=== PATIENT | female | born 1955 | race Caucasian/White ===

== ENCOUNTER → 2016-11-13 | Outpatient (CLI) | payer OTHER ==
[2016-11-13 16:26] LABS: RHEUMATOID FACTOR TRIGGER LESS THAN 10.0 IU/ML (0.0-14.9)
[2016-11-13 16:27] LABS: URIC ACID 3.4 MG/DL (2.6-6.0)
[2016-11-13 16:29] LABS: CREATINE KINASE 102 U/L (26-192)
[2016-11-16 15:19] LABS: ANA SCREEN NEG (NEG)
[2016-11-16 15:30] LABS: HEPATITIS B SURFACE ANTIBODY 0 mIU/mL
[2016-11-18 13:52] LABS: MYELOPEROXIDASE LESS THAN 1.0 AI (<1.0); PROTEINASE-3 LESS THAN 1.0 AI (<1.0)
== END ==
LOC: PLAB 11:51
PROVIDERS: ATTEND Allergy & Immunology
DX: M25.50 Pain in unspecified joint (principal)
CPT/HCPCS: 36415; 82550; 82652; 84550; 85652; 86021; 86038; 86140; 86147; 86200; 86256; 86317; 86430; 86803; 86812

== ENCOUNTER → 2016-12-29 | Outpatient (CLI) | payer OTHER ==
[2016-12-29 13:12] LABS: AUTOMATED NEUTROPHIL # 2.9 TH/MM3 (1.8-7.7); BASOPHIL % 0.5 % (0.0-2.0); EOSINOPHIL # 0.2 TH/MM3 (0-0.4); EOSINOPHIL % 3.7 % (0.0-4.0); HEMATOCRIT 36.2 % (35.0-46.0); HEMO FLAGS DIFF FINAL; LYMPH % 26.6 % (9.0-44.0); LYMPHOCYTE # 1.3 TH/MM3 (1.0-4.8); MEAN CELL VOLUME 88.8 FL (80.0-100.0); MEAN CORPUSCULAR HEMOGLOBIN 30.2 PG (27.0-34.0); MONO % 7.8 % (0.0-8.0); NEUT % 61.4 % (16.0-70.0); PLATELET COUNT 210 TH/MM3 (150-450); RED BLOOD COUNT 4.08 MIL/MM3 (4.00-5.30); RED CELL DISTRIBUTION WIDTH 13.5 % (11.6-17.2); WHITE BLOOD COUNT 4.8 TH/MM3 (4.0-11.0)
[2016-12-29 13:22] LABS: ALT (GPT) 31 U/L (10-53); ANION GAP 7 MEQ/L (5-15); AST (GOT) 20 U/L (15-37); BICARBONATE 27.8 MEQ/L (21.0-32.0); BLOOD UREA NITROGEN 18 MG/DL (7-18); CHLORIDE 105 MEQ/L (98-107); GLOMERULAR FILTRATION RATE 79 ML/MIN (>89); GLUCOSE,FASTING 88 MG/DL (74-99); SODIUM (NA) 140 MEQ/L (136-145)
[2016-12-29 13:31] LABS: ALKALINE PHOSPHATASE 48 U/L (45-117); LDL CHOLESTEROL 115 MG/DL (0-99); TOTAL BILIRUBIN ADULT 0.3 MG/DL (0.2-1.0)
[2016-12-29 13:34] LABS: WESTERGREN SEDIMENTATION RATE 6 mm/hr (0-30)
== END ==
LOC: PLAB 09:42
PROVIDERS: ATTEND Family Medicine
DX: I10 Essential (primary) hypertension (principal); M19.90 Unspecified osteoarthritis, unspecified site; M25.50 Pain in unspecified joint; M79.2 Neuralgia and neuritis, unspecified
CPT/HCPCS: 36415; 80053; 80061; 84443; 85025; 85652; 86140

== ENCOUNTER → 2017-07-12 | Outpatient (CLI) | payer OTHER ==
[2017-07-12 13:33] LABS: HEMATOCRIT 39.8 % (35.0-46.0); MEAN CORPUSCULAR HEMOGLOBIN 29.5 PG (27.0-34.0); MEAN CORPUSCULAR HGB CONC 33.2 % (32.0-36.0); PLATELET COUNT 220 TH/MM3 (150-450); RED BLOOD COUNT 4.47 MIL/MM3 (4.00-5.30); RED CELL DISTRIBUTION WIDTH 12.9 % (11.6-17.2); REVIEW FLAG FINAL; WHITE BLOOD COUNT 4.4 TH/MM3 (4.0-11.0)
[2017-07-12 14:03] LABS: ALT (GPT) 125 U/L (10-53); ANION GAP 5 MEQ/L (5-15); AST (GOT) 77 U/L (15-37); BICARBONATE 27.8 MEQ/L (21.0-32.0); BLOOD UREA NITROGEN 19 MG/DL (7-18); CHLORIDE 106 MEQ/L (98-107); GLOMERULAR FILTRATION RATE 85 ML/MIN (>89); GLUCOSE,FASTING 78 MG/DL (74-99); POTASSIUM 4.3 MEQ/L (3.5-5.1); SODIUM (NA) 139 MEQ/L (136-145)
[2017-07-12 14:13] LABS: ALKALINE PHOSPHATASE 71 U/L (45-117); HDL CHOLESTEROL 67.5 MG/DL (40.0-60.0); LDL CHOLESTEROL 103 MG/DL (0-99); TOTAL BILIRUBIN ADULT 0.5 MG/DL (0.2-1.0)
== END ==
LOC: PLAB 09:29
PROVIDERS: ATTEND Family Medicine
DX: I10 Essential (primary) hypertension (principal); N95.1 Menopausal and female climacteric states; M19.90 Unspecified osteoarthritis, unspecified site; M25.50 Pain in unspecified joint
CPT/HCPCS: 80053; 80061; 84443; 85027

== ENCOUNTER → 2017-07-23 | Outpatient (CLI) | payer OTHER ==
[2017-07-23 14:09] LABS: INDIRECT BILIRUBIN 0.2 MG/DL (0.0-0.8); TOTAL BILIRUBIN ADULT 0.3 MG/DL (0.2-1.0)
== END ==
LOC: PLAB 09:25
PROVIDERS: ATTEND Family Medicine
DX: R79.89 Other specified abnormal findings of blood chemistry (principal)
CPT/HCPCS: 80074; 80076

== ENCOUNTER → 2017-11-10 | Outpatient (CLI) | payer OTHER ==
[2017-11-10 13:39] LABS: ALBUMIN 3.8 GM/DL (3.4-5.0); AST (GOT) 26 U/L (15-37); BICARBONATE 27.5 MEQ/L (21.0-32.0); BLOOD UREA NITROGEN 26 MG/DL (7-18); CALCIUM 9.4 MG/DL (8.5-10.1); CHLORIDE 104 MEQ/L (98-107); CREATININE 0.67 MG/DL (0.50-1.00); DIRECT BILIRUBIN ADULT 0.1 MG/DL (0.0-0.2); GLOMERULAR FILTRATION RATE 89 ML/MIN (>89); GLUCOSE,RANDOM 91 MG/DL (74-106); SODIUM (NA) 137 MEQ/L (136-145)
[2017-11-10 13:41] LABS: ALT (GPT) 40 U/L (10-53)
[2017-11-10 13:42] LABS: ALKALINE PHOSPHATASE 56 U/L (45-117); TOTAL BILIRUBIN ADULT 0.3 MG/DL (0.2-1.0); TOTAL PROTEIN 7.4 GM/DL (6.4-8.2)
== END ==
LOC: PLAB 09:11
PROVIDERS: ATTEND Family Medicine
DX: R74.8 Abnormal levels of other serum enzymes (principal)
CPT/HCPCS: 36415; 80053; 82248

== ENCOUNTER 2017-12-22 11:30 | Inpatient (IN) | payer OTHER ==
[~2017-12-22] VITALS: Ht 167.6 cm; Wt 67.3 kg
[2018-01-21] MEDS ORDERED: FLUO1TAB3 PO (09:29)
[2018-01-21] MEDS ORDERED: MAGN500T5 PO (09:29)
[2018-01-21] MEDS ORDERED: GABA300C5 PO (09:29)
[2018-01-21] MEDS ORDERED: CALC1TAB16 PO (09:29)
[2018-01-21] MEDS ORDERED: VOLT1GEL16 TOPICAL (09:29)
[2018-01-21] MEDS ORDERED: ALIG4CAP PO (09:29)
[2018-01-21] MEDS ORDERED: DICL75TA PO (09:29)
[2018-01-21] MEDS ORDERED: CYAN1TAB24 SL (09:29)
[2018-01-21] MEDS ORDERED: BIOTCAP PO (09:29)
[2018-01-21] MEDS ORDERED: ESTR1TAB PO (09:29)
[2018-02-09] MEDS ORDERED: CHLORHEXIDINE GLUCONATE 4% SOLN 120 ML BTL TOPICAL SCH (06:00)
[2018-02-09] MEDS ORDERED: DEXAMETHASONE SOD PHOS 20 MG/5 ML VIAL IV PUSH ONE (06:00)
[2018-02-09] MEDS ORDERED: ceFAZolin 2 GM PREMIX 50 ML IV SCH (06:00)
[2018-02-09] MEDS ORDERED: POVIDONE IODINE 7.5% SCRUB 118 ML BOTTLE TOPICAL SCH (06:00)
[2018-02-09] MEDS ORDERED: SODIUM CHLOR 0.9% 250 ML INJ 250 ML ONE (06:09)
[2018-02-09] MEDS ORDERED: VANCOMYCIN HCL 1000 MG VIAL ONE (06:10)
[2018-02-09] MEDS ORDERED: FAT EMULSION 20% INJ 0 ML ONE (06:10)
[2018-02-09] MEDS ORDERED: VANCOMYCIN 1 GM/200 ML PREMIX ON-CALL IV SCH (06:15)
[2018-02-09] MEDS ORDERED: METOPROLOL TARTRATE 25 MG TAB PO PRN (06:15)
[2018-02-09] MEDS ORDERED: SODIUM CHLORID 0.9% 500 ML IV PRN (06:15)
[2018-02-09] MEDS ORDERED: LACTATED RINGER'S 1000 ML IV PRN (06:15)
[2018-02-09] MEDS ORDERED: POVIDONE IODINE 5% (ANTISEPSIS KIT) 4 APPLICATIONS EACH NARE PRN (06:15)
[2018-02-09] MEDS ORDERED: CHLORHEXIDINE GLUCONATE 2 % 1 PACK (2 CLOTHS) TOPICAL PRN (06:15)
[2018-02-09] MEDS ORDERED: HYDR-3516 PO (06:26)
[2018-02-09] MEDS ORDERED: GENTAMICIN SULFATE 80 MG/2 ML VIAL ONE (07:03)
[2018-02-09] MEDS ORDERED: BUPIVACAINE HCL PF 0.5% 30 ML VIAL ONE (07:03)
[2018-02-09] MEDS ORDERED: LIDOCAINE HCL 1% PF 5 ML AMPULE ONE ×2 (07:03→07:10)
[2018-02-09] MEDS ORDERED: SODIUM CHLORIDE 0.9% 20 ML VIAL ONE (07:04)
[2018-02-09] MEDS ORDERED: BUPIVACAINE PF 0.75% DEX-WATER INJ 2 ML AMP ONE (07:05)
[2018-02-09] MEDS ORDERED: BUPIVACAINE LIPOSOME PF 1.3% 20 ML VIAL ONE (07:06)
--- NOTE | 2018-02-09 07:08 | HHI.DCPOC ---
Discharge Care Plan Diagnosis: (1) Primary localized osteoarthrosis, lower leg (2) Status post total knee replacement, left Your Health Problems Are: Difficulty with ADL Goals to Promote Your Health * To prevent worsening of your condition and complications * To maintain your health at the optimal level Directions to Meet Your Goals Take your medications as prescribed Follow your dietary instruction Follow activity as directed Keep your appointments as scheduled Take your immunizations and boosters as scheduled If your symptoms worsen call your PCP, if no PCP go to Urgent Care Center or Emergency Room Smoking is Dangerous to Your Health. Avoid second hand smoke Call the 24-hour hour crisis hotline for domestic abuse at Lei Singh February 09, 2018 07:08
--- NOTE | 2018-02-09 07:09 | HHI.FF ---
Face to Face Verification Diagnosis: (1) Primary localized osteoarthrosis, lower leg (2) Status post total knee replacement, left Physical Therapy Gait training, Transfer training, bed to chair Knee: Total knee Left LE Weight Bearing: WB as tolerated Left LE Range of Motion: Active ROM Nursing Nursing: Arielle teaching Dressing Changes: Do not change dressing Additional Instructions First dressing change in the office I have seen patient Priya Segovia on 02/09/18. My clinical findings support the need for the requested home health care services because: Limited ability to care for self High risk of falls I certify that my clinical findings support that this patient is homebound because: Post-op weakness Unsteady gait/balance Lei Singh February 09, 2018 07:09
[2018-02-09] MEDS ORDERED: CPMMACHINE (07:10)
[2018-02-09] MEDS ORDERED: COMMODE 3-IN-11 MIS (07:10)
[2018-02-09] MEDS ORDERED: WALKER WHEELS/F1 MIS (07:10)
[2018-02-09] MEDS ORDERED: TETRACAINE PF 1% INJ 2 ML AMP ONE (07:17)
[2018-02-09] MEDS ORDERED: MIDAZOLAM HCL 5 MG/5 ML VIAL ONE (07:38)
[2018-02-09] MEDS ORDERED: ROPIVACAINE PERI-ARTICULAR INJECTION. P-ARTICULR SCH ×5 (08:30)
[2018-02-09] MEDS ORDERED: SODIUM CHLORIDE 0.9% IV SCH ×2 (08:30→10:00)
[2018-02-09] MEDS ORDERED: TRANEXAMIC ACID IV SCH ×2 (08:30→10:00)
[2018-02-09] MEDS ORDERED: PROPOFOL 500 MG/50 ML INJ 100 ML ONE (09:02)
--- NOTE | 2018-02-09 09:54 | PD.OP ---
cc: Vinh Garber MD Operative Report Date of Surgery: February 09, 2018 Preoperative Diagnosis: Left knee severe ostial arthritis Postoperative Diagnosis: Same Procedure: Left total knee arthroplasty Anesthesia: spinal Surgeon: Vinh Garber Impact Hammer Operator(s): ANDREW Goodson The surgical procedure was assisted by my Advanced Registered Nurse Practitioner. My SLIDER ASSEMBLER presence was necessary throughout this case for the manipulation and positioning of the surgical extremity. My SLIDER ASSEMBLER was assisting me throughout the duration of this procedure. The skill set of an Advance Registered Nurse Practitioner was medically necessary to complete this procedure. During the surgical case, the surgical coordinator was working at the back table and the Advance Registered Nurse Practitioner was directly assisting me. Resident Surgeon: IMPLANTS: DePuy Attune: Patella: size 32. Femur, posterior stabilized size 5 narrow. Tibia, rotating platform size 4. Tibial insert, rotating platform, posterior stabilized size 5 mm thickness. ESTIMATED BLOOD LOSS: 75 cc TOURNIQUET TIME: 33 minutes at 250 mmHg pressure. JUSTIFICATION FOR PROCEDURE: The patient has end-stage osteoarthritis to the knee. There is an attached conservative measures pathway form in the chart that describes the nonoperative measures that were undertaken prior to consideration of surgical management. The patient understood the risks and benefits of surgical management. See my office notes for further details PROCEDURE: The patient was brought back to the operative theatre. Adequate anesthesia was obtained. The patient received intravenous vancomycin and Ancef. The lower extremity was prepped and draped in the usual sterile fashion.The leg was exsanguinated, the tourniquet was raised. A standard anterior incision was performed followed by medial parapatellar arthrotomy was performed. End-stage arthritis was identified. Osteotomy of the patella was performed. We drilled holes for the patella. We trialed the patella component. We placed an intramedullary guide into the distal femur. We ultimately resected 11 mm off of the distal femur in 5 degrees of valgus. The remnants of the ACL and PCL were resected. Osteotomy of the proximal tibia was performed, resecting 5 mm off of the medial side. This was done with 3 degrees of posterior slope using an extramedullary guide. The distal end of the guide was placed in the mid aspect of the ankle. The femur was sized, and four chamfer cuts were completed in 3 of external rotation. We then cut the central box in the distal femur to replace the PCL. We resected the remnants of the menisci and removed osteophytes off of the femur and tibia. We then trialed the knee. We punched the tibia for the keel, and then used standard technique to cement in components. Excess cement was removed. We trialed the knee again and the final polyethylene thickness was chosen to provide extension to 0 degrees, and flexion of 140 degrees to gravity. The ligaments were appropriately balanced. Lateral release was necessary to obtain excellent patellofemoral tracking. The tourniquet was released and adequate hemostasis was obtained. An intra- articular injection of a ropivacaine cocktail was injected. The posterior knee was inspected for excess cement, which was removed. The final polyethylene was put into position after thorough irrigation. We then closed deep fascia with a #2 Stratafix followed by skin with 2-0 Vicryl followed by wayne. Postop plan is to weight-bear as tolerated. DVT prophylaxis will be performed with Cecile, SINCERE almanzar, early mobilization, and Lovenox followed by aspirin. Vinh Garber MD February 09, 2018 09:54
[2018-02-09] MEDS ORDERED: MORPHINE SULFATE 4 MG/ML INJ IV PUSH PRN (10:00)
[2018-02-09] MEDS ORDERED: NALOXONE HCL 0.4 MG/ML AMP IV PUSH PRN (10:00)
[2018-02-09] MEDS ORDERED: Post-op Orders (for Pharmacy) XX ONE (10:00)
[2018-02-09] MEDS ORDERED: ALUMINUM/MAGNESIUM/SIMETH 30 ML CUP PO PRN (10:00)
[2018-02-09] MEDS ORDERED: MAGNESIUM HYDROXIDE SUSP 30 ML CUP PO PRN (10:00)
[2018-02-09] MEDS ORDERED: BISACODYL 10 MG SUPP RECTAL PRN (10:00)
[2018-02-09] MEDS ORDERED: ONDANSETRON HCL 4 MG/2 ML VIAL IVP PRN (10:00)
[2018-02-09] MEDS ORDERED: diphenhydrAMINE HCL 50 MG/ML VIAL IV PUSH PRN (10:00)
[2018-02-09] MEDS ORDERED: DO NOT ADM ANY ANTICOAGULANT DRUGS PRN (10:17)
[2018-02-09] MEDS ORDERED: *MEPERIDINE 25 MG INJ VIAL PERIprocedural Use ONLY ONE (10:32)
[2018-02-09] MEDS: SODIUM CHLOR 0.9% 1000 ML INJ 1,000 ML IV SCH ×2 (10:59→20:13)
--- NOTE | 2018-02-09 11:11 | RADRPT ---
EXAM DATE/TIME: 02/09/2018 10:33 [facility] COMPARISON: No previous studies available for comparison. INDICATIONS : Post-op left knee. MEDICAL HISTORY : None. SURGICAL HISTORY : None. ENCOUNTER: Initial ACUITY: 1 day PAIN SCORE: 6/10 LOCATION: Left Knee. FINDINGS: Patient is status post placement of a left knee prosthesis. There is good position and alignment of t he prosthesis and bony structures. The bony structures are grossly intact. Postsurgical changes are p resent. CONCLUSION: Good position and alignment on this postoperative examination. Elliott Philip MD on February 09, 2018 at 11:09 Board Certified Radiologist. This report was verified electronically.
[2018-02-09] MEDS: ACETAMINOPHEN/HYDROcodone 325 MG/5 MG TAB PO PRN ×4 (11:38→23:47)
[2018-02-09 12:00] VITALS: BP 120/57; PULSE 64; RESP 18; TEMP 97.4; O2SAT 98
[2018-02-09] MEDS ORDERED: PROPOFOL 200 MG/20 ML AMP IV ONE (12:00)
[2018-02-09] MEDS ORDERED: ePHEDrine/NS 25 MG/5 ML SYRINGE IV ONE (12:00)
[2018-02-09] MEDS ORDERED: LACTATED RINGER'S 1000 ML INJ 1,000 ML IV ONE (12:00)
[2018-02-09] MEDS ORDERED: LIDOCAINE HCL 1% PF 5 ML SYRINGE OTHER ONE (12:00)
[2018-02-09 13:20] VITALS: O2SAT 100
[2018-02-09 16:00] VITALS: BP 102/56; PULSE 79; RESP 18; TEMP 97.3; O2SAT 96
[2018-02-09 19:49] VITALS: BP 128/65; PULSE 90; RESP 18; TEMP 98.9; O2SAT 94
[2018-02-09] MEDS: GABAPENTIN 300 MG CAP PO SCH (19:56)
[2018-02-09] MEDS: FLUoxetine HCL 20 MG CAP PO SCH (19:56)
[2018-02-09] MEDS ORDERED: ZOLPIDEM TARTRATE 5 MG TAB PO PRN (21:00)
[2018-02-10] VITALS: BP 99/57; PULSE 67; RESP 18; TEMP 98.4; O2SAT 96
[2018-02-10] MEDS: SODIUM CHLOR 0.9% 1000 ML INJ 1,000 ML IV SCH (02:59)
[2018-02-10] MEDS: ACETAMINOPHEN/HYDROcodone 325 MG/5 MG TAB PO PRN ×3 (04:44→12:50)
[2018-02-10 07:51] VITALS: BP 93/55; PULSE 66; RESP 18; TEMP 98; O2SAT 98
[2018-02-10] MEDS ORDERED: DEXAMETHASONE SOD PHOS 20 MG/5 ML VIAL IV ONE (08:00)
[2018-02-10] MEDS: GABAPENTIN 300 MG CAP PO SCH (08:10)
[2018-02-10] MEDS: FLUoxetine HCL 20 MG CAP PO SCH (08:10)
[2018-02-10] MEDS: ENOXAPARIN SODIUM 40 MG/0.4 ML SYRINGE SQ SCH ×2 (08:10→10:07)
[2018-02-10 08:34] LABS: HEMOGLOBIN 9.7 GM/DL (11.6-15.3); MEAN CELL VOLUME 88.9 FL (80.0-100.0); MEAN CORPUSCULAR HEMOGLOBIN 30.7 PG (27.0-34.0); MEAN CORPUSCULAR HGB CONC 34.5 % (32.0-36.0); MEAN PLATELET VOLUME 8.4 FL (7.0-11.0); PLATELET COUNT 201 TH/MM3 (150-450); RED BLOOD COUNT 3.15 MIL/MM3 (4.00-5.30); RED CELL DISTRIBUTION WIDTH 13.3 % (11.6-17.2); WHITE BLOOD COUNT 9.6 TH/MM3 (4.0-11.0)
[2018-02-10] MEDS ORDERED: ESTRADIOL 1 MG TAB PO SCH (09:00)
[2018-02-10 09:32] VITALS: BP 128/67; PULSE 60
[2018-02-10 11:39] VITALS: BP 145/66; PULSE 62; RESP 18; TEMP 97.9; O2SAT 97
[2018-02-10 11:45] VITALS: O2SAT 97
--- NOTE | 2018-02-10 13:00 | PD.ORT.PN ---
Subjective Post Op Day #: 1 Subjective Remarks Patient resting comfortably in bed in NAD. Patient reports minimal pain and is wanting to go home with home health today. Objective Vitals Vital Signs Date Time Temp Pulse Resp B/P (MAP) Pulse Ox O2 Delivery O2 Flow Rate FiO2 02/10/18 11:45 97 21 02/10/18 11:39 97.9 62 18 145/66 (92) 97 02/10/18 09:32 60 128/67 (87) 02/10/18 07:51 98.0 66 18 93/55 (68) 98 02/10/18 00:00 98.4 67 18 99/57 (71) 96 02/09/18 19:49 98.9 90 18 128/65 (86) 94 02/09/18 16:00 97.3 79 18 102/56 (71) 96 02/09/18 13:20 100 Nasal Cannula 2.00 I/O 02/09/18 02/09/18 02/09/18 02/10/18 02/10/18 02/10/18 06:59 14:59 22:59 06:59 14:59 22:59 Intake Total 796 ml 680 ml 350 ml Output Total 50 ml Balance 746 ml 680 ml 350 ml Intake Oral 480 ml 200 ml IV Total 296 ml 200 ml 150 ml Other 500 ml Output Estimated Blood Loss 50 ml # Voids 3 2 # Bowel Movements 0 0 Result Diagram: 02/10/18 0651 Procedures Left TKA Objective Remarks The patient's dressing is C/D/I. EHL/TA/G intact. 2+ pedal pulse. Calf is soft and nontender. +SILT distally. Assessment & Plan Ortho Post Op Day #: 1 Problem List: Assessment and Plan POD #1: Left TKA 1. WBAT LLE 2. Lovenox followed by ASA for DVT prophylaxis 3. Ice to the left knee PRN 4. Stable for discharge home with home health. 5. F/U in the office with Dr. Garber or DIANDRA Lamb as previously scheduled. Lei Singh February 10, 2018 13:00
[2018-02-10] MEDS ORDERED: MULTIVITAMINS/MINERALS THERAPEUTIC TAB PO SCH (21:00)
[2018-02-10] MEDS ORDERED: DOCUSATE SODIUM 100 MG CAP PO SCH (21:00)
--- NOTE | 2018-02-12 11:50 | HHI.DS ---
Discharge Summary Admission Date February 09, 2018 at 05:27 Discharge Date: February 10, 2018 Admitting Diagnosis Primary localized OA, lower leg Status post total knee replacement, left Diagnosis: (1) Primary localized osteoarthrosis, lower leg Diagnosis: Principal ICD Codes: M17.10 - Unilateral primary osteoarthritis, unspecified knee (2) Status post total knee replacement, left Diagnosis: Principal ICD Codes: Z96.652 - Presence of left artificial knee joint Procedures Left TKA Brief History This is a 63 year old female patient with severe OA of the left knee CBC/BMP: 02/10/18 0651 Significant Findings Laboratory Tests Test 02/10/18 06:51 Red Blood Count 3.15 MIL/MM3 (4.00-5.30) Hemoglobin 9.7 GM/DL (11.6-15.3) Hematocrit 28.0 % (35.0-46.0) PE at Discharge The patient's dressing is C/D/I. EHL/TA/G intact. 2+ pedal pulse. Calf is soft and nontender. +SILT distally. Hospital Course The patient was admitted to the hospital for severe OA of the left knee to have a left TKA. The patient's surgery went well without complication. The patient is WBAT. The patient is on a regular diet. The patient was placed on Lovenox followed by ASA for DVT prophylaxis. The patient was discharged home with home health and will f/u in the office with Dr. Garber or ANDREW Lamb as previously scheduled. Pt Condition on Discharge: Stable Discharge Disposition: Disch w/ Home Health Serv Discharge Instructions Diet Instructions: As Tolerated, No Restrictions Activities You Can Perform: Weight Bearing as David Activities to Avoid: Strenuous Activity Follow up Referrals: Orthopedics with Vinh Garber MD SN[facility]/ with [facility] New Medications: Commode 3-in-1 (Commode 3-in-1) 1 Mis Mis EA .XX DIRECTED, #1 0 Refills CPM-Continuous Passive Motion Machine (CPM-Continuous Passive Motion Machine) 1 Ea Device EA .XX DIRECTED, #1 0 Refills Walker with Front Wheels (Walker with Front Wheels) 1 Mis Mis EA .XX DIRECTED, #1 0 Refills Continued Medications: Biotin (Biotin) 5 Mg Cap 5 MG PO DAILY for Nutritional Supplement, #1 BOTTLE 0 Refills Calcium Citrate-Vitamin D (Calcium Citrate-Vitamin D) 315-200 Mg-Unit Tab 2 TAB PO BID for Calcium Supplement, TAB 0 Refills Cyanocobalamin (B12) 1,000 Mcg Tab 1 TAB SL DAILY Estradiol (Estradiol) 1 Mg Tab 1 MG PO DAILY for Estrogen Supplements, #30 TAB 0 Refills Fluoxetine (Fluoxetine) 20 Mg Tab 20 MG PO BID, #30 TAB 0 Refills Gabapentin (Gabapentin) 300 Mg Cap 300 MG PO BID, #60 CAP 0 Refills Lactobacillus Rhamnosus (GG) (Align) 4 Mg (1 Billion Cell) Cap 4 MG PO DAILY for Nutritional Supplement, CAP 0 Refills Magnesium Gluconate (Magnesium Gluconate) 27 Mg (500 Mg) Tab 500 MG PO BID for Nutritional Supplement, TAB 0 Refills Discontinued Medications: Diclofenac Sodium (Voltaren) 1 % Gel..gram. 1 APPLIC TOPICAL DAILY for Pain Management Diclofenac Sodium DR (Diclofenac Sodium DR) 75 Mg Tabdr 75 MG PO BID, #60 TAB 0 Refills Hydrocodone-Acetaminophen (Hydrocodone-Acetaminophen) 5-325 mg Tab 1 TAB PO Q6H PRN for PAIN, TAB 0 Refills Lei Singh February 12, 2018 11:50
== END 2018-02-10 14:18 | disposition home health service (06) | DRG 470 ==
LOC: HSDI 02-09 05:27 → EDSTATUS 02-09 07:00 → N06B 02-09 11:23
PROVIDERS: ADMIT Orthopaedic Surgery; ATTEND Orthopaedic Surgery
PROC: 3E0T3BZ Introduction of Anesthetic Agent into Peripheral Nerves and Plexi, Percutaneous Approach (ICD-10-PCS; 2018-02-09)
PROC: 0SRD0J9 Replacement of Left Knee Joint with Synthetic Substitute, Cemented, Open Approach (ICD-10-PCS; principal; 2018-02-09 08:00)
DX: M17.12 Unilateral primary osteoarthritis, left knee (principal); F32.9 Major depressive disorder, single episode, unspecified; K21.9 Gastro-esophageal reflux disease without esophagitis; M25.762 Osteophyte, left knee
CPT/HCPCS: 73560; 85027; 86850; 86900; 86901; 94150; C1776; C9290; J0690; J0735; J1100; J1580; J1650; J1885; J2175; J2250; J2270; J2405; J2795; J3010; J3370; J7030; J7050; J7120; L1830

== ENCOUNTER → 2018-01-21 | Outpatient (CLI) | payer OTHER ==
[~2018-01-21] MED LIST: ALIG4CAP PO; BIOTCAP PO; CALC1TAB16 PO; CYAN1TAB24 SL; DICL75TA PO; ESTR1TAB PO; FLUO1TAB3 PO; GABA300C5 PO; MAGN500T5 PO; VOLT1GEL16 TOPICAL
[2018-01-21 10:22] LABS: BASOPHIL % 0.7 % (0.0-2.0); EOSINOPHIL # 0.1 TH/MM3 (0-0.4); EOSINOPHIL % 2.8 % (0.0-4.0); HEMATOCRIT 38.9 % (35.0-46.0); HEMOGLOBIN 12.7 GM/DL (11.6-15.3); LYMPH % 27.3 % (9.0-44.0); LYMPHOCYTE # 1.3 TH/MM3 (1.0-4.8); MEAN CELL VOLUME 89.2 FL (80.0-100.0); MEAN CORPUSCULAR HEMOGLOBIN 29.1 PG (27.0-34.0); MEAN CORPUSCULAR HGB CONC 32.7 % (32.0-36.0); MEAN PLATELET VOLUME 8.8 FL (7.0-11.0); MONOCYTE # 0.4 TH/MM3 (0-0.9); NEUT % 61.2 % (16.0-70.0); PLATELET COUNT 226 TH/MM3 (150-450); RED BLOOD COUNT 4.36 MIL/MM3 (4.00-5.30); RED CELL DISTRIBUTION WIDTH 13.7 % (11.6-17.2); WHITE BLOOD COUNT 4.9 TH/MM3 (4.0-11.0)
[2018-01-21 10:27] LABS: BILIRUBIN, URINE NEG (NEG); BLOOD, URINE NEG (NEG); GLUCOSE,URINE NEG (NEG); KETONE, URINE NEG (NEG); MUCUS URINE FEW /lpf (OCC); NITRITE,URINE NEG (NEG); SQUAMOUS EPITHELIAL CELL URINE <1 /hpf (0-5); URINE COLOR LIGHT-YELLOW (YELLW/STRAW); URINE LEUKOCYTE ESTERASE NEG (NEG)
--- NOTE | 2018-01-21 10:29 | RADRPT ---
EXAM DATE/TIME: 01/21/2018 09:55 [facility] COMPARISON: No previous studies available for comparison. INDICATIONS : Evaluate for pneumoina,pneumothorax pre op for knee surgery. MEDICAL HISTORY : None. SURGICAL HISTORY : None. ENCOUNTER: Initial ACUITY: 1 day PAIN SCORE: 0/10 LOCATION: Bilateral chest FINDINGS: PA and lateral views of the chest demonstrate the lungs to be symmetrically aerated without evidence of mass, infiltrate or effusion. The cardiomediastinal contours are unremarkable. Moderate thoracol umbar scoliosis CONCLUSION: No acute disease. James Ordaz MD FACR on January 21, 2018 at 10:13 Board Certified Radiologist. This report was verified electronically.
[2018-01-21 10:34] LABS: ALBUMIN 3.6 GM/DL (3.4-5.0); AST (GOT) 25 U/L (15-37); BICARBONATE 27.1 MEQ/L (21.0-32.0); BLOOD UREA NITROGEN 24 MG/DL (7-18); CALCIUM 8.8 MG/DL (8.5-10.1); CHLORIDE 107 MEQ/L (98-107); CREATININE 0.71 MG/DL (0.50-1.00); GLOMERULAR FILTRATION RATE 84 ML/MIN (>89); GLUCOSE,FASTING 80 MG/DL (74-99); SODIUM (NA) 139 MEQ/L (136-145)
[2018-01-21 10:35] LABS: ALT (GPT) 30 U/L (10-53)
[2018-01-21 10:37] LABS: ALKALINE PHOSPHATASE 49 U/L (45-117); TOTAL BILIRUBIN ADULT 0.4 MG/DL (0.2-1.0); TOTAL PROTEIN 7.2 GM/DL (6.4-8.2)
[2018-01-21 10:42] LABS: WESTERGREN SEDIMENTATION RATE 5 mm/hr (0-30)
--- NOTE | 2018-01-21 19:46 | EKG ---
Date Performed: 01/21/2018 Time Performed: 09:13:48 PTAGE: 62 years EKG: SINUS BRADYCARDIA BORDERLINE ECG Since the PREVIOUS TRACING , no significant change noted PREVIOUS TRACIN10/17/2007 07.10 DOCTOR: Manuel Briones Interpretating Date/Time 01/21/2018 19:45:59
== END ==
LOC: CPRE 08:54
PROVIDERS: ATTEND Orthopaedic Surgery
DX: Z01.812 Encounter for preprocedural laboratory examination (principal); Z01.811 Encounter for preprocedural respiratory examination; Z01.810 Encounter for preprocedural cardiovascular examination; M79.609 Pain in unspecified limb; M25.50 Pain in unspecified joint; M17.12 Unilateral primary osteoarthritis, left knee; Z96.60 Presence of unspecified orthopedic joint implant
CPT/HCPCS: 36415; 71046; 80053; 81001; 85025; 85610; 85652; 85730; 93005

== ENCOUNTER → 2018-03-17 | Outpatient (CLI) | payer OTHER ==
[~2018-03-17] MED LIST changes: +COMMODE 3-IN-11 MIS; +CPMMACHINE; -DICL75TA PO; -VOLT1GEL16 TOPICAL; +WALKER WHEELS/F1 MIS
== END ==
LOC: PLAB 14:45
PROVIDERS: ATTEND Family Medicine
DX: R19.5 Other fecal abnormalities (principal)
CPT/HCPCS: 87328; 87329; 87493; 87506